=== PATIENT | male | born 2005 ===

== ENCOUNTER 2023-11-17 12:14 | Emergency (ER) | payer OTHER, SELFPAY ==
[2023-11-17 12:25] VITALS: BP 159/102; PULSE 94; RESP 20; TEMP 37; O2SAT 99; BMI 29.5
--- NOTE | 2023-11-17 12:33 | ED.WOUNDLAC ---
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 He believes that his last tetanus was about 2 years ago. Injury happened just prior to arrival, notes significant bleeding. Is not any blood thinners. Onset (ago): minute(s) Place: work Patient tetanus UTD: Yes Context: accidental and sharp object use Related Data Allergies Allergy/AdvReac Type Severity Reaction Status Date / Time No Known Drug Allergies Allergy Verified 11/17/23 12:34 Review of Systems Narrative: As per HPI. Exam Const: Vital Signs, click to edit/add: Vital Signs - 24 hr 11/17/23 12:25 Temperature 98.6 F Pulse Rate [Right Pulse Oximeter] 94 Respiratory Rate 20 Blood Pressure [Ri ght Upper Arm] 159/102 H Pulse Oximetry 99 Oxygen Delivery Me thod Room Air Patient had a of blood on the hand, finger is wrapped in bandaging and has blood through this. He had some mild dripping of dark blood from the bandaging. Tourniquet was applied at the base of the finger. Bandaging was removed. He had cut the end lateral portion of the nail bed and fingernail. There was oozing from the underlying soft tissue. No arterial bleeding noted, he did not have any exposure of underlying bony tissue. He simply avulsed a portion of the end of the nail and through the nail bed. There was nothing to reapproximate or sew. [place] and bandaging applied. Documenting provider has reviewed patient's vital signs: yes Course Vital Signs Vital signs: Initial Vital Signs Temperature 98.6 F 11/17/23 12:25 Temperature Source Temporal Artery Scan 11/17/23 12:25 Pulse Rate 94 11/17/23 12:25 Pulse Rhythm Regular 11/17/23 12:25 Pulse Strength 3+ Normal 11/17/23 12:25 Respiratory Rate 20 11/17/23 12:25 Blood Pressure 159/102 H 11/17/23 12:25 Blood Pressure Mean 121 H 11/17/23 12:25 Blood Pressure Position Supine 11/17/23 12:25 Pulse Oximetry 99 11/17/23 12:25 Oxygen Delivery Method Room Air 11/17/23 12:25 Vital Signs Temperature 98.6 F 11/17/23 12:25 Pulse Rate 94 11/17/23 12:25 Respiratory Rate 20 11/17/23 12:25 Blood Pressure 159/102 H 11/17/23 12:25 Pulse Oximetry 99 11/17/23 12:25 Oxygen Delivery Method Room Air 11/17/23 12:25 Temperature 98.6 F 11/17/23 12:25 Pulse Rate 94 11/17/23 12:25 Respiratory Rate 20 11/17/23 12:25 Blood Pressure 159/102 H 11/17/23 12:25 Pulse Oximetry 99 11/17/23 12:25 Oxygen Delivery Method Room Air 11/17/23 12:25 Discharge Plan Discharge Clinical Impression: Avulsion of soft tissue Injury of nail bed of finger of left hand Qualifiers: Encounter type: initial encounter Qualified Code(s): S69.92XA - Unspecified injury of left wrist, hand and finger(s), initial encounter Patient Disposition: Home, Self-Care Condition: Stable Instructions: Skin Avulsion (ED), Nail Avulsion (ED) Additional Instructions: Leave current dressing on for the next 2 days. After that, can start changing bandaging or dressing once to twice daily or as needed. Do not pull off the underlying [place]. Would try to keep this finger dry at least for the next 48 hours. Can gently wash hands after that. The wound base may be likely to have some mild bleeding. If this happens again, hold pressure for 30 minutes and elevate. Do recommend ice and elevation to this finger for the next 24 hours, do cycles of 20 minutes of ice on, 10 minutes off. If there is concern about uncontrolled bleeding, please seek re-evaluation. If you have concerns about this wound becoming infected, do recommend re-evaluation. Stand Alone Forms: [facility] Info Instructions
== END 2023-11-17 12:57 | disposition home or self-care (01) ==
PROVIDERS: Emergency Provider Family Medicine
DX: S61.318A Laceration without foreign body of other finger with damage to nail, initial encounter (principal); W26.0XXA Contact with knife, initial encounter
CPT/HCPCS: 99282; 99283